=== PATIENT | male | born 1960 | race Caucasian/White ===

== ENCOUNTER 2021-04-14 16:42 | Emergency (ER) | payer BC, SELFPAY ==
[2021-04-14 17:01] VITALS: BP 111/86; PULSE 102; RESP 18; TEMP 37.2; O2SAT 97; BMI 20.8
--- NOTE | 2021-04-14 17:10 | HMH.EDUTC ---
[facility] [place] Disposition Clinical Impression: COVID-19 virus test result unknown, Sun allergy Disposition: Home, Self-Care Condition on Discharge: Good Instructions: COVID-19: Protecting Yourself When You're at High Risk Additional Instructions: covid swab was sent to lab, call later today for results. self isolate until test results are known to be negative Monitor temperature. Seek treatment if fever develops. Follow-up immediately if new or worse symptoms worsen or no noticeable improvement over 48 hours. Increase fluids such as water, Gatorade, Powerade, juice or Pedialyte with limited formula/dietary in children No food is okay as long as you are drinking. Once ready to eat start bland such as bananas, rice, applesauce, toast. Contagious until no diarrhea, vomiting, fever times 48 hours without medication Avoid antidiarrheals unless told otherwise. Best to let the virus run its course. Follow-up immediately for new or worsening symptoms or no noticeable improvement over the next 48 hours. Prescriptions: predniSONE [Prednisone 20mg Tab] 20 mg PO BID #10 tab Transmission Status: Pending to [id number] Silver Sulfadiazine [Silvadene Cream 50gm] 50 gm TP BID 7 Days #1 bottle Transmission Status: Pending to [id number] Referrals: Ahsan Ewing [Primary Care Provider] - Time of Disposition: 17:18 Medical Decision Making - Ron Inquiry Pt receiving controlled substance: No Vital Signs: 04/14/21 17:01 Temperature 98.9 F Temperature Source Tympanic Pulse Rate [Apical] 102 H Respiratory Rate 18 Blood Pressure [Right Arm] 111/86 Blood Pressure Mean [Right Arm] 94 Blood Pressure Source [Right Arm] Automatic Cuff Blood Pressure Position [Right Arm] Supine 02 Sat by Pulse Oximetry 97 Oxygen Delivery Method Room Air [facility] [place] HPI - General Chief complaint: Urgent Treatment Center Stated complaint: weak, redness on forehead Time Seen by Provider: 04/14/21 17:10 Mode of Arrival: Ambulatory Source of Information: Patient, Spouse Limitations: No Limitations Description of Symptoms (Recalled from Triage Doc. by RN): patiet reports area of swelling and redness on forehead, coughing, diarrhea, sores on scalp HEENT Symptoms (Recalled from RN notes): No Resp Symptoms (Recalled from RN notes): No Skin Symptoms (Recalled from RN notes): Yes MS Symptoms (Recalled from RN notes): No Functional Status (Recalled from RN notes): na - History of Present Illness Provider Complaint: 60 yr old male presents for swelling and redness on forehead, coughing, diarrhea, sores on scalp. 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 - Related Data Previous Rx's Medication Instructions Recorded Silver Sulfadiazine [Silvadene 50 gm TP BID 7 Days #1 bottle 04/14/21 Cream 50gm] predniSONE [Prednisone 20mg 20 mg PO BID #10 tab 04/14/21 Tab] - Worker's Comp Is this a Worker's Comp case?: No [facility] History - Hepatitis A Screen Drug use history?: No High risk sexual behaviors?: No History of sexually transmitted infection?: No Currently employed?: No Childcare worker?: No Do you have indoor plumbing?: Yes Do you have electricity?: Yes Attestation statement:: This patient has been screened for Hepatitis A risk factors. I have reviewed the patient's past medical history: Yes ROS Obtained: Yes Systems reviewed as appropriate & no additional complaints - Constitutional Constitutional: Reports system reviewed and no additional complaints, except as docu, Reports body ache, Reports chills, Denies fever(s) - Eyes Eyes: Reports system reviewed and no additional complaints, except as docu, Denies blurry vision - ENT Ears, Nose, Mouth, and Throat: Reports system reviewed and no additional complaints, except as docu, Denies sinus pain - Cardiovascular Cardiovascular: Repo
[2021-04-14 17:30] VITALS: BP 111/86; PULSE 102; RESP 18; TEMP 37.2; O2SAT 97
--- NOTE | 2021-04-15 09:54 | PC.NURSE ---
PATIENT CALLED AND REQUESTED COVID RESULTS, PATIENT INFORMED THE TEST WAS NEGATIVE
== END 2021-04-14 17:32 | disposition home or self-care (01) ==
PROVIDERS: Emergency Provider Nurse Practitioner Family; PCP Family Medicine
DX: Z20.822 Contact with and (suspected) exposure to COVID-19 (principal); R05 Cough; L55.9 Sunburn, unspecified
CPT/HCPCS: 99202; G0463; U0003